=== PATIENT | male | born 1995 | race Caucasian/White ===

== ENCOUNTER 2017-05-21 18:03 | Emergency (ER) | payer OTHER ==
[~2017-05-21] VITALS: Ht 175.3 cm; Wt 63.0 kg
[2017-05-21] MEDS ORDERED: PROZAC20 MG PO (18:43)
[2017-05-21 21:39] VITALS: BP 134/73
== END 2017-05-21 21:46 ==
LOC: EME 18:03
DX: S51.812A Laceration without foreign body of left forearm, initial encounter (principal); X78.9XXA Intentional self-harm by unspecified sharp object, initial encounter; Y92.149 Unspecified place in prison as the place of occurrence of the external cause
CPT/HCPCS: 86703; 99281; 99284